=== PATIENT | female | born 1970 | race Caucasian/White ===

== ENCOUNTER 2019-09-12 18:17 | Emergency (ER) | payer OTHER ==
[~2019-09-12] VITALS: Ht 165.1 cm; Wt 83.9 kg
[2019-09-12] MEDS ORDERED: ZESTRIL10 MG PO (18:33)
[2019-09-12] MEDS ORDERED: NEURONTIN 300M300 M2 PO (18:33)
[2019-09-12] MEDS ORDERED: LASIX 20 MG TAB20 MG PO (18:34)
[2019-09-12] MEDS ORDERED: KLOR-CON 10 ER10 MEQ PO (18:34)
[2019-09-12] MEDS ORDERED: IBUPROFEN 800800 M1 PO (19:22)
[2019-09-12 20:52] VITALS: BP 145/89
== END 2019-09-12 20:53 | disposition home or self-care (01) ==
LOC: M.ERS 18:17
DX: S82.61XA Displaced fracture of lateral malleolus of right fibula, initial encounter for closed fracture (principal); I10 Essential (primary) hypertension; Z98.890 Other specified postprocedural states; Z90.49 Acquired absence of other specified parts of digestive tract; Z88.0 Allergy status to penicillin; Z88.6 Allergy status to analgesic agent; Z88.8 Allergy status to other drugs, medicaments and biological substances; X50.1XXA Overexertion from prolonged static or awkward postures, initial encounter; Y93.89 Activity, other specified; Y92.89 Other specified places as the place of occurrence of the external cause; Y99.8 Other external cause status